=== PATIENT | male | born 2000 | race Caucasian/White ===

== ENCOUNTER 2022-08-13 20:19 | Emergency (ER) | payer SELFPAY ==
[~2022-08-13] VITALS: Ht 182.9 cm; Wt 84.5 kg
[2022-08-13 20:37] VITALS: BP 110/71
--- NOTE | 2022-08-13 20:42 | NUR ---
PT TO LOBBY
--- NOTE | 2022-08-13 23:43 | NUR ---
Dr. Tovar examining patient.
--- NOTE | 2022-08-13 23:55 | NUR ---
Patient taken to X-ray via WC.
--- NOTE | 2022-08-14 00:02 | NUR ---
Patient taken to bed 9.
[2022-08-14 00:06] LABS: BASOPHILS % (AUTO) 0.5 % (0.0-2.0); EOSINOPHILS # (AUTO) 0.1 K/uL (0-0.4); EOSINOPHILS % (AUTO) 1.1 % (0.0-4.0); HEMATOCRIT 44.6 % (36-52); HEMOGLOBIN 15.1 g/dL (12.0-18.0); LYMPHOCYTES % (AUTO) 21.3 % (20.5-51.1); MEAN CORPUSCULAR HEMOGLOBIN 31 pg (27-31); MEAN CORPUSCULAR HGB CONC 34 g/dL (33-37); MEAN CORPUSCULAR VOLUME 90.3 fL (80-94); MONOCYTES # (AUTO) 0.5 K/uL (0.8-1.0); MONOCYTES % (AUTO) 5.3 % (1.7-9.3); NEUTROPHILS # (AUTO) 6.8 K/uL (1.8-7.7); NEUTROPHILS % (AUTO) 71.8 % (42.2-75.2); PLATELET COUNT (AUTO) 186 K/uL (140-450); RED BLOOD CELL COUNT(AUTO) 4.94 MIL/uL (4.20-6.10); WHITE BLOOD COUNT (AUTO) 9.4 K/uL (4.8-10.8)
[2022-08-14 00:22] LABS: ALBUMIN 4.4 g/dL (3.4-5.0); ANION GAP 11.1 (8-16); ASPARTATE AMINOTRANSFERASE 16 U/L (15-37); CARBON DIOXIDE 29.2 mmol/L (21-32); CHLORIDE 104 mmol/L (98-107); GFR ARICAN-AMERICAN 120 mL/min (>90); GLUCOSE 104 mg/dL (74-106); POTASSIUM 4.3 mmol/L (3.5-5.1); SODIUM SERUM 140 mmol/L (136-145); THYROID STIMULATING HORMONE 1.81 uIU/mL (0.34-3.74); TOTAL BILIRUBIN 0.5 mg/dL (0.0-1.0); UREA NITROGEN, BLOOD 9 mg/dL (7-18)
--- NOTE | 2022-08-14 01:52 | NUR ---
Patient discharged with v/s stable. Written and verbal after care instructions given and explained. Patient verbalized understanding. Ambulatory with steady gait. All questions addressed prior to discharge. Advised to follow up with PMD.
[2022-08-14 01:53] VITALS: BP 121/65
== END 2022-08-14 01:53 | disposition home or self-care (01) ==
LOC: MED 20:19
DX: R55 Syncope and collapse (principal); F12.90 Cannabis use, unspecified, uncomplicated
CPT/HCPCS: 36415; 71045; 80053; 84443; 84484; 85025; 93005; 99284; 99285

== ENCOUNTER 2023-05-05 08:47 | Emergency (ER) | payer MEDICAID, OTHER ==
[~2023-05-05] VITALS: Ht 167.6 cm; Wt 59.0 kg
[2023-05-05 09:02] VITALS: BP 122/76; PULSE 89; RESP 18; TEMP 98; O2SAT 98
[2023-05-05 09:28] VITALS: O2SAT 98
[2023-05-05] MEDS ORDERED: KETOROLAC 30 MG/ML VIAL IM ONE (09:30)
[2023-05-05 10:08] LABS: FLU A ANTIGEN negative (NEGATIVE); FLU B ANTIGEN NEGATIVE (NEGATIVE)
[2023-05-05] MEDS ORDERED: IBUP-2213 PO (10:12)
[2023-05-05] MEDS ORDERED: LID5T TP (10:12)
== END 2023-05-05 10:17 | disposition home or self-care (01) ==
LOC: MED 08:47
DX: J06.9 Acute upper respiratory infection, unspecified (principal); Z20.822 Contact with and (suspected) exposure to COVID-19; R07.89 Other chest pain; Z79.899 Other long term (current) drug therapy
CPT/HCPCS: 71045; 87426; 87804; 93005; 96372; 99285; J1885

== ENCOUNTER 2024-01-11 15:24 | Emergency (ER) | payer OTHER ==
[~2024-01-11] VITALS: Ht 182.9 cm; Wt 89.4 kg
[~2024-01-11 15:24] MED LIST: IBUP-2213 PO; LID5T TP
[2024-01-11 15:32] VITALS: BP 140/63; PULSE 60; RESP 22; TEMP 98.3; O2SAT 100
[2024-01-11 16:11] LABS: FLU A ANTIGEN NEGATIVE (NEGATIVE); FLU B ANTIGEN NEGATIVE (NEGATIVE)
[2024-01-11] MEDS ORDERED: ONDA-188 SL (17:15)
== END 2024-01-11 17:35 | disposition home or self-care (01) ==
LOC: MED 15:24
DX: J02.9 Acute pharyngitis, unspecified (principal); B34.9 Viral infection, unspecified; R11.0 Nausea; F12.90 Cannabis use, unspecified, uncomplicated; Z20.822 Contact with and (suspected) exposure to COVID-19; Z79.899 Other long term (current) drug therapy
CPT/HCPCS: 71046; 87081; 93005; 99285